=== PATIENT | male | born 1995 | race Two or more races ===

== ENCOUNTER 2020-07-14 17:52 | Emergency (ER) | payer SELFPAY ==
[2020-07-14 18:00] VITALS: BP 160/87
[2020-07-14] MEDS ORDERED: HYDROCODONE/ACETAMINOPHEN 5-325 MG TABLET PO ONE (18:24)
--- NOTE | 2020-07-14 18:28 | ER Document Report ---
HPI - HPI Time Seen by Provider: 07/14/20 18:13 Onset: Yesterday Onset/Duration: Gradual Quality of pain: Sharp Pain Level: 5 Context: Patient presents complaining of right lateral ankle pain since last night. Patient denies any injury. Patient denies any fever. Patient denies any history of gout. Patient does have a history of congestive heart failure and states that he does take diuretics but it did not help the swelling to his ankle. Associated Symptoms: denies: Fever, Nausea, Vomiting Exacerbated by: Standing, Movement, Walking Relieved by: Denies Similar symptoms previously: No Recently seen / treated by doctor: No - ROS ROS below otherwise negative: Yes Systems Reviewed and Negative: Yes All other systems reviewed and negative - CONSTITUTIONAL Constitutional: DENIES: Fever, Chills - NEURO Neurology: DENIES: Weakness - GASTROINTESTINAL Gastrointestinal: DENIES: Nausea, Patient vomiting - MUSCULOSKELETAL Musculoskeletal: REPORTS: Extremity pain, Swelling - DERM Skin Color: Normal Skin Problems: None Past Medical History - General Information source: Patient - Social History Smoking Status: Never Smoker Frequency of alcohol use: None Drug Abuse: Marijuana Family History: Reviewed & Not Pertinent - Past Medical History Cardiac Medical History: Reports: Hx Congestive Heart Failure Surgical Hx: Negative Vertical Provider Document - CONSTITUTIONAL Agree With Documented VS: Yes Exam Limitations: No Limitations General Appearance: WD/WN, No Apparent Distress - HEENT HEENT: Atraumatic, Normocephalic - NECK Neck: Normal Inspection, Supple - RESPIRATORY Respiratory: Breath Sounds Normal, No Respiratory Distress - CARDIOVASCULAR Cardiovascular: Regular Rate, Regular Rhythm Pulses: Normal: Dorsalis pedis - MUSCULOSKELETAL/EXTREMETIES Musculoskeletal/Extremeties: MAEW, Tender - Right ankle tenderness over lateral malleolar area, 2+ edema with mild calor, faint erythema, Edema. negative: Eccymosis - NEURO Level of Consciousness: Awake, Alert, Appropriate Motor/Sensory: No Motor Deficit - DERM Integumentary: Warm, Dry, No Rash Course - Re-evaluation Re-evalutation: 07/14/20 18:27 Patient states that because of the swelling he took his diuretic medications thinking that this would help his symptoms although he does not typically have ankle pain which prompted his visit tonight. 07/14/20 19:41 Patient with elevated uric acid, patient symptoms are concerning for acute gout flareup. Good return precautions discussed with patient. Patient given information on diet. - Vital Signs Vital signs: Temp Pulse Resp BP Pulse Ox 98.6 F 49 L 20 160/87 H 94 07/14/20 17:58 07/14/20 17:58 07/14/20 17:58 07/14/20 17:58 07/14/20 17:58 - Laboratory Results Result Diagrams: 07/14/20 18:38 07/14/20 18:38 Laboratory Results Interpreted: 07/14/20 23:58 Labs- All tests 24 hr 07/14/20 07/14/20 18:38 18:38 WBC 15.0 H RBC 5.20 Hgb 15.7 Hct 46.4 MCV 89 MCH 30.2 MCHC 33.8 RDW 14.6 H Plt Count 265 Lymph % (Auto) 14.9 [place] % (Auto) 6.8 Eos % (Auto) 0.8 Baso % (Auto) 0.6 Absolute Neuts (auto) 11.6 H Absolute Lymphs (auto) 2.2 Absolute Monos (auto) 1.0 Absolute Eos (auto) 0.1 Absolute Basos (auto) 0.1 Seg Neutrophils % 76.9 ESR 11 Sodium 138.8 Potassium 3.9 Chloride 101 Carbon Dioxide 28 Anion Gap 10 BUN 13 Creatinine 0.98 Est GFR ( Amer) > 60 Est GFR (MDRD) Non-Af > 60 Glucose 111 H Uric Acid 9.7 H Calcium 9.9 C-Reactive Protein 25.3 H Critical Laboratory Results Reviewed: No Critical Results - Radiology Results Critical Radiology Results Reviewed: No Critical Results Discharge - Discharge Clinical Impression: Ankle pain Qualifiers: Chronicity: acute Laterality: right Qualified Code(s): M25.571 - Pain in right ankle and joints of right foot Gout attack Qualifiers: Gout site: ankle Gout etiology: unspecified cause Laterality: right Qualified Code(s): M10.9 - Gout, unspecified Condition: Stable Disposition: HOME, SELF-CARE Instructions: Use of Crutches ([facility]), Gout ([facility]), Gout Diet ([facility]), Oral Narcotic Medication ([facility]) Additional Instructions: Return immediately for any new or worsening symptoms Followup with your primary care provider, call tomorrow to make a followup appointment Eat a diet low in purine to avoid worsening or causing gout attacks Prescriptions: Colchicine [Colcrys 0.6 mg Tablet] 0.6 mg PO ASDIR #1 tablet Hydrocodone/Acetaminophen [Ponce 5-325 mg Tablet] 1 tab PO Q6 PRN #15 tablet PRN Reason: Referrals: [facility] [Provider Group] - Follow up as needed
[2020-07-14 18:47] LABS: ABSOLUTE BASOPHILS # (AUTO) 0.1 10^3/uL (0.0-0.2); ABSOLUTE EOSINOPHILS # (AUTO) 0.1 10^3/uL (0.0-0.6); ABSOLUTE LYMPHOCYTES (AUTO) 2.2 10^3/uL (0.5-4.7); ABSOLUTE NEUT (AUTO) 11.6 10^3/uL (1.7-8.2); BASOPHILS % (AUTO) 0.6 % (0-2); EOSINOPHILS % (AUTO) 0.8 % (0-6); HEMATOCRIT 46.4 % (37.9-51.0); HEMOGLOBIN 15.7 g/dL (13.5-17.0); LYMPHOCYTES % (AUTO) 14.9 % (13-45); MEAN CORPUSCULAR HEMOGLOBIN 30.2 pg (27.0-33.4); MEAN CORPUSCULAR HGB CONC 33.8 g/dL (32.0-36.0); MEAN CORPUSCULAR VOLUME 89 fl (80-97); MONOCYTES % (AUTO) 6.8 % (3-13); PLATELET COUNT 265 10^3/uL (150-450); RED CELL DISTRIBUTION WIDTH 14.6 % (11.5-14.0); SEGMENTED NEUTROPHILS % (AUTO) 76.9 % (42-78); TOTAL CELLS COUNTED % (AUTO) 100 %
[2020-07-14 19:15] LABS: ANION GAP 10 (5-19); BLOOD UREA NITROGEN 13 mg/dL (7-20); C-REACTIVE PROTEIN 25.3 mg/L (<10.0); CALCIUM 9.9 mg/dL (8.4-10.2); CARBON DIOXIDE 28 mmol/L (22-30); CHLORIDE 101 mmol/L (98-107); GLUCOSE 111 mg/dL (75-110); POTASSIUM 3.9 mmol/L (3.6-5.0); URIC ACID 9.7 mg/dL (3.5-8.5)
[2020-07-14 19:23] LABS: ERYTHROCYTE SEDIMENTATION RATE 11 mm/hr (0-15)
[2020-07-14] MEDS ORDERED: COLCHICINE 0.6 MG TABLET PO ONE (19:34)
--- NOTE | 2020-07-14 19:53 | RADIOLOGY REPORT (SQ) ---
EXAM DESCRIPTION: ANKLE RIGHT COMPLETE IMAGES COMPLETED DATE/TIME: 07/14/2020 6:56 pm REASON FOR STUDY: r ankle pain, swelling COMPARISON: None. NUMBER OF VIEWS: Three views. TECHNIQUE: AP, lateral, and oblique radiographic images acquired of the right ankle. LIMITATIONS: None. FINDINGS: MINERALIZATION: Normal. BONES: No acute fracture or dislocation. Plantar and posterior calcaneal spurs are present. JOINTS: No effusions. SOFT TISSUES: No soft tissue swelling. No foreign body. OTHER: No other significant finding. IMPRESSION: Calcaneal spurs. No acute osseous finding. TECHNICAL DOCUMENTATION: JOB ID: [id number] G[employer]- All Rights Reserved Reading location - IP/workstation name: [email or web address]
== END 2020-07-14 20:16 | disposition home or self-care (01) ==
LOC: ER 17:52
DX: M10.9 Gout, unspecified (principal); M77.31 Calcaneal spur, right foot; I50.9 Heart failure, unspecified; M25.571 Pain in right ankle and joints of right foot; Z79.899 Other long term (current) drug therapy
CPT/HCPCS: 36415; 80048; 84550; 85025; 85652; 86140; 99284